=== PATIENT | male | born 1990 | race Caucasian/White ===

== ENCOUNTER 2023-12-17 09:14 | Outpatient (AMB) | payer BC, SELFPAY ==
--- NOTE | 2023-12-17 09:26 | MHC.PC.OV ---
Vital Signs 12/17/23 09:29 Height 5 ft 10 in Weight 324 lb BMI 46.5 BP 132/68 Blood Pressure Location Rt brachial Position Sitting Pulse 85 Pulse Source Pulse Oximeter Pulse Oximetry (%) 97 Oxygen Delivery Method Room Air Intake Visit Reasons: Annual PE Intake Note: Pt is here today for her PE Allergies No Known Allergies Allergy (Verified 12/17/23 09:54) Medication List - Last Reconciled 12/17/23 by Renetta Jean MD No Known Home Meds Tobacco use date assessed: 12/17/23 Dental Screening Dental Screen Date: 12/17/23 Did you have a dental visit in the last 12 months?: Yes Did you have a dental problem in the last 6 months where you did not have access to dental care?: No Was dental information given to patient?: Patient has dentist HPI Annual PE HPI Details 32-year-old male with morbid obesity, has history of mixed anxiety and depression, here today for a physical exam. He was supposed to see a psychotherapist for his anxiety on last visit, but was unable to due to the COVID pandemic. Does not want to start any medications at present time, he has been trying to lose weight through diet and exercise, initially was successful but after he started his new job at the [employer], has not been able to find time to exercise. [facility] Medical History Mixed anxiety depressive disorder History of recurrent ear infection Morbid obesity Surgical History H/O wisdom tooth extraction No pertinent past surgical history Family History Maternal Aunt Throat cancer Other No significant family history Social History Housing: Apartment Alcohol intake: never Patient Tobacco Use Status: Never used Tobacco e-Cigarette/Vaping Use: Never Used service: No Current occupational status: employed Cognitive needs: No Hearing needs: No Vision needs: Yes Questionnaire PHQ-9 Over the last 2 weeks, how often have you been bothered by any of the following problems? 1. Little interest or pleasure in doing things: not at all 2. Feeling down, depressed, or hopeless: several days 3. Trouble falling or staying asleep, or sleeping too much: several days 4. Feeling tired or having little energy: several days 5. Poor appetite or overeating: not at all 6. Feeling bad about yourself - or that you are a failure or have let yourself or your family down: nearly every day 7. Trouble concentrating on things, such as reading the newspaper or watching television: not at all 8. Moving or speaking so slowly that other people could have noticed. Or the opposite - being so fidgety or restless that you have been moving around a lot more than usual: not at all 9. Thoughts that you would be better off or of hurting yourself in some way: not at all Total score: 6 Depression Screening Interpretation: Positive (Referred to Melany Bowie for assistance in getting in to be seen for therapy, does not want to start medication at present) Depression Screening Follow-up: Existing condition and Community Mental Health Worker F/U Depression Screening Done: Yes 98161 - PHQ-9 Billing: Yes Source: Developed by Drs. Amadou Cameron, Debby Anderson, Shan Hood and colleagues, with an educational marielos from [employer]. Thrive Questionnaire Date Thrive assessed: 12/17/23 I am a: Patient What is your living situation today?: I have a steady place to live Within the past 12 months, did the food you bought not last and you didn't have the money to get more?: Never true Within the past 12 months, did you worry whether your food would run out before you got money to buy more?: Never true Do you have trouble paying for medicines?: No Do you have trouble getting transportation to medical appointments?: No Do you have trouble paying your heating and electricity bill?: No Do you have trouble taking care of your child, family member or friend?: No Do you have trouble with day-to-day activities such as bathing, preparing meals, shopping, managing finances, etc.?: No Are you currently unemployed and looking for a job?: No Are you interested in more education?: No THRIVE Score: 0 AUDIT C Alcohol Use Questionnaire (AUDIT-C) 1. How often do you have a drink containing alcohol?: Never Total Score: 0 URBAN-7 AMB Questionnaire URBAN-7 Date URBAN - 7 assessed: 12/17/23 Feeling nervous, anxious, or on edge: 1 = Several days Not being able to stop or control worryin = Several days Worrying too much about different things: 1 = Several days Trouble relaxin = Several days Being so restless that it is hard to sit still: 0 = Not at all Becoming easily annoyed or irritable: 1 = Several days Feeling afraid as if something awful might happen: 2 = More than half the days Total URBAN-7 score (0-4 normal; 5-9 mild; 10-14 moderate; 15-21 severe): 7 Source: Developed by Drs. Amadou Cameron, Debby Anderson, Shan Hood and colleagues, with an educational marielos from [employer]. URBAN-7 Assessment Billing URBAN-7 Assessment Tool: URBAN-7 Assessment 04449 Review of Systems Const Denies body aches, Denies fatigue, Denies headache(s) and Denies weakness Eyes Details: [facility] Reports blurry vision ENT Denies dizziness, Denies headache(s), Denies nasal congestion and Denies nasal discharge Card Denies chest pain, Denies lightheadedness, Denies palpitations and Denies dyspnea Resp Denies chest congestion, Denies cough, Denies dyspnea and Denies wheezing GI Denies abdominal pain, Denies change in bowel habits and Denies heartburn Denies dysuria, Denies urinary frequency and Denies urinary urgency Musc Denies back pain, Reports arthralgias (Occasional in the knees), Denies joint swelling and Denies stiffness Skin/Breast Denies lesions and Denies rash Neuro Denies dizziness, Denies headache(s) and Denies weakness Psych Reports as per HPI Endo Denies fatigue, Denies polydipsia, Denies polyuria and Denies palpitations Theodore/Lymph Denies easy bruising Aller/Immun Denies seasonal rhinorrhea and Denies wheezing Physical exam (Primary Care) Vital Signs: Last Vital Signs Pulse 85 12/17/23 09:29 BP 132/68 12/17/23 09:29 Pulse Ox 97 12/17/23 09:29 Oxygen Delivery Method Room Air 12/17/23 09:29 BMI result Body Mass Index 46.5 BMI Assessment/Plan discussion: High BMI High, discussed plan: lifestyle, weight reduction, dietary and physical activity Tobacco/Smoking Status: Tobacco use Status Tobacco use date assessed 12/17/23 12/17/23 09:34 Patient Tobacco Use Status Never used Tobacco 12/17/23 09:34 e-Cigarette/Vaping Use Never Used 12/17/23 09:34 PHQ-9: PHQ-9 Score PHQ-9: Total score 6 12/17/23 10:16 Depression Screening Interpretation: Positive (Referred to Melany Bowie for assistance in getting in to be seen for therapy, does not want to start medication at present) Depression Screening Follow-up: Existing condition and Community Mental Health Worker F/U Thrive Assessment: Date of Thrive Assessment Date Thrive assessed 12/17/23 12/17/23 09:34 Const Other: Alert oriented x3, no acute distress noted ambulatory with normal gait Nutritional Appearance: obese morbidly obese Orientation/consciousness: patient oriented x3 HENMT Head: Yes atraumatic Ears: TM's normal bilaterally and EAC's normal General nose exam: Normal external nose present and No nasal discharge present Face and sinus: Yes face symmetric Mouth: Normal oral and palatal mucosa present and moist mucous membranes Eyes General: appearance normal, both eyes and all related structures Neck Neck: Yes full ROM, Yes no lymphadenopathy and Yes supple Thyroid: Thyroid normal Resp Auscultation: clear to auscultation bilaterally Cardio Other: S1-S2 present regular and rhythm GI Other: Normal bowel sounds, soft, nontender with no mass palpated Male General Exam: Yes other (Declined exam states that he has no testicular mass/pain or penile d/c) Back/Spine/Pelvis Back: No back tenderness Skin General skin exam: no rashes or lesions noted Neuro General: patient oriented x3, gait normal, moves all extremities, Normal light touch and pain sensation, no focal motor deficits and CN's II-XI intact bilaterally Extrem General: Yes full ROM, Yes no joint enlargement, Yes no clubbing, cyanosis or edema, Yes no calf tenderness and Yes normal gait Psych Appearance: grossly normal and well kempt Mental Status: mental status grossly normal Speech and movement: Normal speech and movement present Affect: normal affect Attitude: cooperative Thought process: Normal thought process present Assessment and Plan Assessment & Plan (1) Annual visit for general adult medical examination with abnormal findings: Code(s): Z00.01 - Encounter for general adult medical examination with abnormal findings Plan: Will check appropriate labs. Recommended dental visit every 6 months and regular eye exams, at least every 2 years. Take adequate calcium in diet and vitamin-D 3 at 2000 IU per cap once a day, in addition to weight-bearing exercises to help maintain good muscle tone and weight control. Instructed to do self testicular exam check for any mass. Reminded to get his yearly flu shot, has had COVID vaccines in the past but does not want to get the booster declined getting Tdap today (2) Mixed anxiety depressive disorder: Code(s): F41.8 - Other specified anxiety disorders Plan: Patient states that he for the most part he is able to control his anxiety attacks cut would like to still see a therapist. Referred to Melany for assistance in getting in to sees a therapist, declined starting medication at present time, does not feel that he needs to, (3) Morbid obesity: Code(s): E66.01 - Morbid (severe) obesity due to excess calories Plan: Discussed need to increase activity and weight reduction. Recommended focusing on improving your health instead of dieting. : Eat Mediterranean diet, limit foods high in fat, sugar, and calories, eat slowly, pay attention to portion sizes, plan your meals ahead of time, start regular physical activity 150 minutes of moderate intensity exercise or 90 minutes/week of vigorous exercise and increase water intake. Declined referral to weight loss clinic Orders: Orders Basic Metabolic Panel Fasting 12/17/23 E66.01 - Morbid (severe) obesity due to excess calories, F41.8 - Other specified anxiety disorders, Z00.01 - Encounter for general adult medical examination with abnormal findings, Z13.1 - Encounter for screening for diabetes mellitus, Z13.220 - Encounter for screening for lipoid disorders Aspartate Amino Transferase 12/17/23 E66.01 - Morbid (severe) obesity due to excess calories, F41.8 - Other specified anxiety disorders, Z00.01 - Encounter for general adult medical examination with abnormal findings, Z13.1 - Encounter for screening for diabetes mellitus, Z13.220 - Encounter for screening for lipoid disorders Complete Blood Count Auto Diff 12/17/23 E66.01 - Morbid (severe) obesity due to excess calories, F41.8 - Other specified anxiety disorders, Z00.01 - Encounter for general adult medical examination with abnormal findings, Z13.1 - Encounter for screening for diabetes mellitus, Z13.220 - Encounter for screening for lipoid disorders Vitamin D 25-OH Total 12/17/23 E66.01 - Morbid (severe) obesity due to excess calories, F41.8 - Other specified anxiety disorders, Z00.01 - Encounter for general adult medical examination with abnormal findings, Z13.1 - Encounter for screening for diabetes mellitus, Z13.220 - Encounter for screening for lipoid disorders Alanine Aminotransferase 12/17/23 E66.01 - Morbid (severe) obesity due to excess calories, F41.8 - Other specified anxiety disorders, Z00.01 - Encounter for general adult medical examination with abnormal findings, Z13.1 - Encounter for screening for diabetes mellitus, Z13.220 - Encounter for screening for lipoid disorders Lipid Panel 12/17/23 E66.01 - Morbid (severe) obesity due to excess calories, F41.8 - Other specified anxiety disorders, Z00.01 - Encounter for general adult medical examination with abnormal findings, Z13.1 - Encounter for screening for diabetes mellitus, Z13.220 - Encounter for screening for lipoid disorders TSH reflex Free T4 12/17/23 E66.01 - Morbid (severe) obesity due to excess calories, F41.8 - Other specified anxiety disorders, Z00.01 - Encounter for general adult medical examination with abnormal findings, Z13.1 - Encounter for screening for diabetes mellitus, Z13.220 - Encounter for screening for lipoid disorders Coding Level of Care Code Est Pt Prev Care [id number]([id number]) Diagnoses Annual visit for general adult medical examination with abnormal findings Z00.01 Mixed anxiety depressive disorder F41.8 Morbid obesity E66. Additional Codes URBAN-7 Assessment Billing - URBAN-7 Assessment Tool: URBAN-7 Assessment [id number] ([id number])
[2023-12-17 09:29] VITALS: BP 132/68; PULSE 85; O2SAT 97; BMI 46.5
== END 2023-12-17 10:25 | disposition home or self-care (01) ==
PROVIDERS: PCP Internal Medicine; Visit Provider Internal Medicine
DX: Z00.00 Encounter for general adult medical examination without abnormal findings (principal); E66.01 Morbid (severe) obesity due to excess calories; Z68.42 Body mass index [BMI] 45.0-49.9, adult; F41.8 Other specified anxiety disorders
CPT/HCPCS: 99395

== ENCOUNTER 2024-12-21 09:16 | Outpatient (REF) | payer BC, SELFPAY ==
[2024-12-21 10:16] LABS: MANUAL DIFF FLAG NO
[2024-12-21 10:29] LABS: Basophils Absolute Auto 0.1 X10*3/uL (0.0-0.2); Basophils Percent Auto 0.6 % (0-2); Eosinophils Percent Auto 0.4 % (0-4); Hematocrit 46.9 % (42.0-52.0); Hemoglobin 15.7 g/dl (14.0-18.0); Imm Gran Abs Auto 0.02 X10*3/uL (0.00-0.03); Imm Gran Pct Auto 0.3 % (0.0-0.4); Lymphocytes Absolute Auto 2.5 X10*3/uL (1.2-4.9); Lymphocytes Percent Auto 32.2 % (20-40); Mean Corpuscular HGB Conc 33.5 g/dl (31.0-36.0); Mean Corpuscular Hemoglobin 27.7 pg (27.0-33.0); Mean Corpuscular Volume 82.9 fL (80.0-98.0); Mean Platelet Volume 10.7 fL (9.4-12.4); Monocytes Absolute Auto 0.5 X10*3/uL (0.1-1.2); Monocytes Percent Auto 6.9 % (2-11); Neutrophils Absolute Auto 4.7 x10*3/uL (2.0-8.3); Neutrophils Percent Auto 59.6 % (45-73); Platelet Count 303 X10*3/uL (160-400); Red Blood Count 5.66 X10*6/uL (4.60-5.80); Red Cell Distribution Width 13.6 % (11.0-16.0); White Blood Count 7.8 X10*3/uL (4.8-10.8)
[2024-12-21 11:52] LABS: Alanine Aminotransferase 32 U/L (0-40); Anion Gap 14 (12-20); Aspartate Amino Transferase 34 U/L (5-37); Blood Urea Nitrogen 12 mg/dL (9-16); Calcium 9.8 mg/dL (8.4-10.2); Carbon Dioxide 24 mmol/L (22-29); Chloride 105 mmol/L (96-108); Cholesterol 167 mg/dL (<200); Estimated Glomerular Filt Rate > 60; Glucose Fasting 85 mg/dL (60-99); HDL Cholesterol 38 mg/dL (>40); LDL Cholesterol Calculated 112 mg/dL (<100); Potassium 4.2 mmol/L (3.3-5.1); Sodium 139 mmol/L (135-145); Triglycerides 85 mg/dL (<150)
== END 2024-12-21 09:17 | disposition home or self-care (01) ==
LOC: HO.HMGCLDS 09:16
PROVIDERS: PCP Internal Medicine; Visit Provider Internal Medicine
DX: E66.01 Morbid (severe) obesity due to excess calories (principal); F41.8 Other specified anxiety disorders; Z13.220 Encounter for screening for lipoid disorders; Z13.1 Encounter for screening for diabetes mellitus
CPT/HCPCS: 36415; 80048; 80061; 84450; 84460; 85025

== ENCOUNTER 2024-12-26 08:36 | Outpatient (AMB) | payer BC, SELFPAY ==
--- NOTE | 2024-12-26 08:38 | A.OFFPC_ITS ---
Vital Signs 12/26/24 08:45 Height 5 ft 10 in Weight 316 lb BMI 45.3 BP 120/74 Blood Pressure Location Rt brachial Position Sitting Respiration 16 Pulse 96 Pulse Source Pulse Oximeter Temp 97.9 F Temp Source Oral Pulse Oximetry (%) 98 Oxygen Delivery Method Room Air Intake Visit Reasons: PE Intake Note: Pt is here today for his PE Allergies No Known Allergies Allergy (Verified 12/26/24 08:56) Medication List - Last Reconciled 12/26/24 by Renetta Jean MD No Known Home Meds Tobacco use date assessed: 12/26/24 Dental Screening Dental Screen Date: 12/26/24 Did you have a dental visit in the last 12 months?: Yes Did you have a dental problem in the last 6 months where you did not have access to dental care?: No Was dental information given to patient?: Patient has dentist HPI PE HPI Details 33-year-old male with history of morbid obesity, mixed anxiety disorder, presents today for his physical exam. He is currently not taking any medications for his anxiety depression, , sees therapist regularly who has been advising him with regards to behavioral techniques on how to control his anxiety but patient feels like he needs to take something right now as he has been having more frequent attacks of anxiety lately. Has never been placed on medications in the past Latest fasting labs done showed electrolytes, renal function fasting glucose, lipids are all within normal limits except for low good cholesterol levels. CBC also came back within normal limits. [facility] Medical History (Updated 12/26/24 @ 09:18 by Renetta Jean MD) Low HDL (under 40) Mixed anxiety depressive disorder History of recurrent ear infection Morbid obesity Surgical History H/O wisdom tooth extraction No pertinent past surgical history Family History Maternal Aunt Throat cancer Other No significant family history Social History Housing: Apartment Alcohol intake: never Patient Tobacco Use Status: Never used Tobacco e-Cigarette/Vaping Use: Never Used service: No Current occupational status: employed Cognitive needs: No Hearing needs: No Vision needs: Yes Questionnaire PHQ-9 Over the last 2 weeks, how often have you been bothered by any of the following problems? 1. Little interest or pleasure in doing things: not at all 2. Feeling down, depressed, or hopeless: several days 3. Trouble falling or staying asleep, or sleeping too much: several days 4. Feeling tired or having little energy: several days 5. Poor appetite or overeating: not at all 6. Feeling bad about yourself - or that you are a failure or have let yourself or your family down: nearly every day 7. Trouble concentrating on things, such as reading the newspaper or watching television: not at all 8. Moving or speaking so slowly that other people could have noticed. Or the opposite - being so fidgety or restless that you have been moving around a lot more than usual: not at all 9. Thoughts that you would be better off or of hurting yourself in some way: not at all Total score: 6 Depression Screening Interpretation: Positive (Currently sees therapist at [facility], started on bupropion XL 150 mg per tablet taken once a day in a.m.) Depression Screening Follow-up: Existing condition, In treatment, New Medication prescribed, Community Mental Health Worker F/U and Follow-up Visit Requested (Telehealth visit in 4 weeks after starting new medication) Depression Screening Done: Yes 05077 - PHQ-9 Billing: Yes Source: Developed by Drs. Amadou Cameron, Debby Anderson, Shan Hood and colleagues, with an educational marielos from [employer]. Thrive Questionnaire Date Thrive assessed: 12/26/24 I am a: Patient What is your living situation today?: I have a steady place to live Within the past 12 months, did the food you bought not last and you didn't have the money to get more?: Never true Within the past 12 months, did you worry whether your food would run out before you got money to buy more?: Never true Do you have trouble paying for medicines?: No Do you have trouble getting transportation to medical appointments?: No Do you have trouble paying your heating and electricity bill?: No Do you have trouble taking care of your child, family member or friend?: No Do you have trouble with day-to-day activities such as bathing, preparing meals, shopping, managing finances, etc.?: No Are you currently unemployed and looking for a job?: No Are you interested in more education?: No Please select the resources that you would like help with: None Currently or been in a relationship where the following occur: No concerns reported THRIVE Score: 0 AUDIT C Alcohol Use Questionnaire (AUDIT-C) 1. How often do you have a drink containing alcohol?: Never Total Score: 0 URBAN-7 AMB Questionnaire URBAN-7 Date URBAN - 7 assessed: 12/26/24 Feeling nervous, anxious, or on edge: 2 = More than half the days Not being able to stop or control worryin = More than half the days Worrying too much about different things: 2 = More than half the days Trouble relaxin = More than half the days Being so restless that it is hard to sit still: 2 = More than half the days Becoming easily annoyed or irritable: 2 = More than half the days Feeling afraid as if something awful might happen: 2 = More than half the days Total URBAN-7 score (0-4 normal; 5-9 mild; 10-14 moderate; 15-21 severe): 14 Source: Developed by Drs. Amadou Cameron, Debby Anderson, Shan Hood and colleagues, with an educational marielos from [employer]. URBAN-7 Assessment Billing URBAN-7 Assessment Tool: URBAN-7 Assessment 20835 (Started on bupropion XL 150 mg daily, continue with regular counseling, follow-up telehealth in 4 weeks) Review of Systems Const Denies body aches, Denies fatigue, Denies headache(s), Denies weakness and Reports weight loss Eyes Details: [facility] Reports blurry vision ENT Denies dizziness, Denies headache(s), Denies nasal congestion and Denies nasal discharge Card Denies chest pain, Denies lightheadedness, Denies palpitations and Denies dyspnea Resp Denies chest congestion, Denies cough, Denies dyspnea and Denies wheezing GI Denies abdominal pain, Denies change in bowel habits and Denies heartburn Denies dysuria, Denies urinary frequency and Denies urinary urgency Musc Denies back pain, Reports arthralgias (Occasional in the knees), Denies joint swelling and Denies stiffness Skin/Breast Denies lesions and Denies rash Neuro Denies dizziness, Denies headache(s) and Denies weakness Psych Reports as per HPI Endo Denies fatigue, Denies polydipsia, Denies polyuria and Denies palpitations Theodore/Lymph Denies easy bruising Aller/Immun Denies seasonal rhinorrhea and Denies wheezing Physical exam (Primary Care) Vital Signs: Last Vital Signs Temp 97.9 F 12/26/24 08:45 Pulse 96 12/26/24 08:45 Resp 16 12/26/24 08:45 BP 120/74 12/26/24 08:45 Pulse Ox 98 12/26/24 08:45 Oxygen Delivery Method Room Air 12/26/24 08:45 BMI result Body Mass Index 45.3 Tobacco/Smoking Status: Tobacco use Status Tobacco use date assessed 12/26/24 12/26/24 08:44 Patient Tobacco Use Status Never used Tobacco 12/26/24 08:40 e-Cigarette/Vaping Use Never Used 12/26/24 08:40 PHQ-9: PHQ-9 Score PHQ-9: Total score 6 12/26/24 09:26 Depression Screening Interpretation: Positive (Currently sees therapist at [facility], started on bupropion XL 150 mg per tablet taken once a day in a.m.) Depression Screening Follow-up: Existing condition, In treatment, New Medication prescribed, Community Mental Health Worker F/U and Follow-up Visit Requested (Telehealth visit in 4 weeks after starting new medication) Thrive Assessment: Date of Thrive Assessment Date Thrive assessed 12/26/24 12/26/24 08:44 Currently or been in a relationship where the following occur: No concerns reported Const Other: Alert oriented x3, no acute distress noted ambulatory with normal gait General: comfortable, no acute distress and alert Nutritional Appearance: obese morbidly obese Orientation/consciousness: patient oriented x3 Limitations: no limitations HENMT Head: Yes atraumatic Ears: TM's normal bilaterally and EAC's normal General nose exam: Normal external nose present and No nasal discharge present Face and sinus: Yes face symmetric Mouth: Normal oral and palatal mucosa present and moist mucous membranes Eyes General: appearance normal, both eyes and all related structures Neck Neck: Yes full ROM, Yes no lymphadenopathy and Yes supple Thyroid: Thyroid normal Chest Chest palpation & inspection: normal inspection of the chest Breast/axilla inspection: normal inspection of the breasts Resp Effort & Inspection: able to speak in complete sentences Auscultation: clear to auscultation bilaterally Cardio Other: S1-S2 present regular and rhythm GI Other: Normal bowel sounds, soft, nontender with no mass palpated Inspection: Yes obesity Male General Exam: Yes other (Declined exam states that he has no testicular mass/pain or penile d/c) Back/Spine/Pelvis Back: No back tenderness Skin General skin exam: no rashes or lesions noted Neuro General: patient oriented x3, gait normal, moves all extremities, Normal light touch and pain sensation, no focal motor deficits and CN's II-XI intact bilaterally Extrem General: Yes full ROM, Yes no joint enlargement, Yes no clubbing, cyanosis or edema, Yes no calf tenderness and Yes normal gait Psych Appearance: grossly normal and well kempt Mental Status: mental status grossly normal Speech and movement: Normal speech and movement present Affect: normal affect Attitude: cooperative Thought process: Normal thought process present Results Reviewed Results Reviewed: RUN: 12/26/24 0857 PAGE 1 [facility] [address] [place] [id number] [place] Underwriter: Sancho Morillo M.D. Specimen Inquiry Name: Perry Camacho Age/Sex: 33/M : 1990 Unit#: [id number] Attend Dr: Renetta Jean MD Re12/21/24 Status: DEP [facility] Disch: SPEC : [id number] ASHLEY: 12/21/24 STATUS: COMP REQ : [id number] RECD: 12/21/24-[address]: Renetta Jean MD COMP: 12/21/24 ENTERED: 12/21/[address] [facility] [address]: ORDERED: CBC Auto Diff Test Result Flag Reference WBC 7.8 4.8-10.8 X10*3/uL RBC 5.66 4.60-5.80 X10*6/uL HGB 15.7 14.0-18.0 g/dl HCT 46.9 42.0-52.0 % MCV 82.9 80.0-98.0 fL MCH 27.7 27.0-33.0 pg MCHC 33.5 31.0-36.0 g/dl RDW 13.6 11.0-16.0 % PLT 303 160-400 X10*3/uL MPV 10.7 9.4-12.4 fL Neut Pct Auto 59.6 45-73 % ImGran Pct Auto 0.3 0.0-0.4 % Lymp Pct Auto 32.2 20-40 % Ocean Pct Auto 6.9 2-11 % Eos Pct Auto 0.4 0-4 % Baso Pct Auto 0.6 0-2 % NRBC Pct Auto 0.0 0.0-0.2 /100WBC ANC Neut Abs # 4.7 2.0-8.3 x10*3/uL ImGran Abs Auto 0.02 0.00-0.03 X10*3/uL Lymph Abs Auto 2.5 1.2-4.9 X10*3/uL Ocean Abs Auto 0.5 0.1-1.2 X10*3/uL Eos Abs Auto 0.0 0.0-0.4 X10*3/uL Baso Abs Auto 0.1 0.0-0.2 X10*3/uL NRBC Abs Auto 0.000 0.0-0.012 X10*3/uL pranay: Perry Camacho Age/Sex: 33/M : 1990 Unit#: [id number] Attend Dr: Renetta Jean MD Re12/21/24 Status: DEP REF Location: [facility] Disch: SPEC : [id number] ASHLEY: 12/21/24 STATUS: COMP REQ : [id number] RECD: 12/21/24-[address]: Renetta Jean MD COMP: 12/21/241152 ENTERED: 12/21/24-[address]: ORDERED: Met Prof Fast, AST, ALT, Lipid Panel Test Result Flag Reference Sodium 139 135-145 mmol/L Potassium 4.2 3.3-5.1 mmol/L CL 105 96-108 mmol/L CO2 24 22-29 mmol/L Gap 14 12-20 BUN 12 9-16 mg/dL Creat 0.83 0.5-1.4 mg/dL eGFR > 60 Chronic Kidney Disease: Estimated GFR < 60 mL/min/1.73m2 Severe Kidney Disease: Estimated GFR < 15 mL/min/1.73m2 FBS 85 60-99 mg/dL CA 9.8 8.4-10.2 mg/dL AST (GOT) 34 5-37 U/L ALT (GPT) 32 0-40 U/L Triglyceride 85 <150 mg/dL Desirable Triglyceride: less than 150 mg/dL Borderline High Triglyceride 150-199 mg/dL High Triglyceride: 200-499 mg/dL Very High Triglyceride: greater than or equal to 5OO mg/dL Cholesterol 167 <200 mg/dL Desirable Cholesterol: less than 200 mg/dL Borderline High Cholesterol: 200-239 mg/dL High Cholesterol: greater than 239 mg/dL LDL Calculated 112 H <100 mg/dL Desirable LDL: less than 100 mg/dL Near Optimal/Above Optimal LDL: 110-129 mg/dL Borderline High LDL: 130-159 mg/dL High LDL: 160-189 mg/dL Very High LDL: greater than or equal to 190 mg/dL HDL 38 L >40 mg/dL Desirable HDL: greater than 40 mg/dL Note: This HDL assay may give artificially low results in patients with liver disease. Coding Level of Care Code Est Pt Prev Care 18-39y(86209) Diagnoses Annual visit for general adult medical examination with abnormal findings Z. Mixed anxiety depressive disorder F41.8 Low HDL (under 40) E78.6 Additional Codes URBAN-7 Assessment Billing - URBAN-7 Assessment Tool: URBAN-7 Assessment 19920 ([id number]) PHQ-9 - 30526 - PHQ-9 Billing: Yes ([id number]) Assessment & Plan Assessment & Plan (1) Annual visit for general adult medical examination with abnormal findings: Code(s): Z00.01 - Encounter for general adult medical examination with abnormal findings Plan: Recent fasting lab results discussed with patient which came back significant for low HDL cholesterol. Advised to do at least 30 minutes of moderate intensity exercise daily and adherence to healthy eating habits.. Continue with dental visit every 6 months and regular eye exams, at least every 2 years, currently up-to-date. Advised to try eating a Mediterranean diet, cutting back on sodas, processed foods and refined sugars reminded to get yearly flu shot, does not want to get a COVID booster, reminded as well to get the Tdap. Patient does not want to get any vaccine at present time as he is going straight to work (2) Mixed anxiety depressive disorder: Code(s): F41.8 - Other specified anxiety disorders Category: Medical Plan: Currently sees therapist, will start on bupropion XL 150 mg per tablet to take once a day in a.m., discussed possible side effects which may increase risk for seizures, insomnia, do not mixed with any alcoholic drinks, will see him back for follow-up via telehealth in 4 weeks (3) Low HDL (under 40): Code(s): E78.6 - Lipoprotein deficiency Category: Medical Plan: Reinforced importance of following a healthy diet, try doing Mediterranean diet and encouraged to do moderate intensity exercise for 15 minutes at least 3 to 4 times a week to help raise good cholesterol levels Medications: New bupropion HCl XL 150 mg PO QAM 30 tabs 1RF F41.8 - Other specified anxiety disorders
[2024-12-26 08:45] VITALS: BP 120/74; PULSE 96; RESP 16; TEMP 36.6; O2SAT 98; BMI 45.3
== END 2024-12-26 09:23 | disposition home or self-care (01) ==
LOC: HO.HMCC 08:37
PROVIDERS: PCP Internal Medicine; Visit Provider Internal Medicine
DX: Z00.01 Encounter for general adult medical examination with abnormal findings (principal); F41.8 Other specified anxiety disorders; E78.6 Lipoprotein deficiency

== ENCOUNTER → 2024-12-26 08:36 | Outpatient (BNVA) | payer BC, SELFPAY | PROVIDERS: PCP Internal Medicine; Visit Provider Internal Medicine | DX: Z00.01 Encounter for general adult medical examination with abnormal findings (principal); F41.8 Other specified anxiety disorders; E78.6 Lipoprotein deficiency | CPT/HCPCS: 96127 ==

== ENCOUNTER 2025-01-11 09:47 | Outpatient (AMB) | payer BC, SELFPAY ==
--- NOTE | 2025-01-11 10:02 | AM.OFFVISNUR ---
Intake Visit Reasons: TDAP shot Allergies No Known Allergies Allergy (Verified 12/26/24 08:56) Immunizations Boostrix Tdap 2.5 Lf unit-8 mcg-5 Lf/0.5 mL intramuscular syringe Performing Provider: Renetta Jean MD Performing Location: [facility] Administered by: Isai Salcedo CMA on 01/11/25 10:04 Dose Route Admin Location Dispensed Lot Number Expiration Date [facility] [employer] Operator 0.5 mL IM Right Deltoid 0.5 mL [id number] 04/25/27 [id number] [employer] VIS Given Date VIS Provided VIS Publication Date 01/11/25 Single Vaccine 21 Eligibility Eligibility Date Funding Source Not [facility] Eligible 01/11/25 Private Assessment & Plan Assessment & Plan Orders: Orders TDaP Immunization Today Z23 - Encounter for immunization Medications: New Boostrix Tdap (diphth,pertus(acell),tetanus) 0.5 mL IM ONCE 0.5 mL 0RF NS Z23 - Encounter for immunization Coding
== END 2025-01-11 10:31 | disposition home or self-care (01) ==
LOC: HO.HMCC 09:48
PROVIDERS: PCP Internal Medicine; Visit Provider Internal Medicine
DX: Z23 Encounter for immunization (principal)

== ENCOUNTER → 2025-01-11 09:47 | Outpatient (BNVA) | payer BC, SELFPAY | PROVIDERS: PCP Internal Medicine; Visit Provider Internal Medicine | DX: Z23 Encounter for immunization (principal) | CPT/HCPCS: 90471; 90715 ==

== ENCOUNTER 2025-01-19 11:20 | Outpatient (AMB) | payer BC, SELFPAY ==
--- NOTE | 2025-01-19 11:18 | A.OFFPC_ITS ---
Intake Visit Reasons: 1 months f/up-telehealth Intake Note: Pt is having a teleheatlh visit for his 1mo. f/u Allergies No Known Allergies Allergy (Verified 01/19/25 11:21) Medication List - Last Reconciled 01/19/25 by Renetta Jean MD bupropion HCl XL 150 mg PO QAM Tobacco use date assessed: 01/19/25 Dental Screening Dental Screen Date: 01/19/25 Did you have a dental visit in the last 12 months?: Yes Did you have a dental problem in the last 6 months where you did not have access to dental care?: No Was dental information given to patient?: Patient has dentist HPI 1 months f/up-telehealth HPI Details - The patient is a 34-year-old male pres enting for follow up on his depression, seeking an adjustment in bupropion dosage. - Despite being on a daily 150 mg dose, he reports minimal changes and desires an increase to 300 mg for potentially better efficacy. - The administration of the medication o ccurs in the morning with no significant side effects noted except for rare mild dreams at onset. [facility] Medical History Low HDL (under 40) Mixed anxiety depressive disorder History of recurrent ear infection Morbid obesity Surgical History H/O wisdom tooth extraction No pertinent past surgical history Family History Maternal Aunt Throat cancer Other No significant family history Social History Housing: Apartment Alcohol intake: never Patient Tobacco Use Status: Never used Tobacco e-Cigarette/Vaping Use: Never Used service: No Current occupational status: employed Cognitive needs: No Hearing needs: No Vision needs: Yes Questionnaire PHQ-9 Over the last 2 weeks, how often have you been bothered by any of the following problems? 1. Little interest or pleasure in doing things: not at all 2. Feeling down, depressed, or hopeless: several days 3. Trouble falling or staying asleep, or sleeping too much: several days 4. Feeling tired or having little energy: several days 5. Poor appetite or overeating: not at all 6. Feeling bad about yourself - or that you are a failure or have let yourself or your family down: nearly every day 7. Trouble concentrating on things, such as reading the newspaper or watching television: not at all 8. Moving or speaking so slowly that other people could have noticed. Or the opposite - being so fidgety or restless that you have been moving around a lot more than usual: not at all 9. Thoughts that you would be better off or of hurting yourself in some way: not at all Total score: 6 Depression Screening Interpretation: Positive (Currently sees therapist at [facility] [place], increased dose of bupropion XL to 300 mg per tablet taken once a day in a.m.) Depression Screening Follow-up: Existing condition, In treatment and Community Mental Health Worker F/U Depression Screening Done: Yes 22642 - PHQ-9 Billing: Yes Source: Developed by Drs. Amadou Cameron, Debby Anderson, Shan Hood and colleagues, with an educational marielos from [employer]. Thrive Questionnaire Date Thrive assessed: 12/26/24 I am a: Patient What is your living situation today?: I have a steady place to live Within the past 12 months, did the food you bought not last and you didn't have the money to get more?: Never true Within the past 12 months, did you worry whether your food would run out before you got money to buy more?: Never true Do you have trouble paying for medicines?: No Do you have trouble getting transportation to medical appointments?: No Do you have trouble paying your heating and electricity bill?: No Do you have trouble taking care of your child, family member or friend?: No Do you have trouble with day-to-day activities such as bathing, preparing meals, shopping, managing finances, etc.?: No Are you currently unemployed and looking for a job?: No Are you interested in more education?: No Please select the resources that you would like help with: None Currently or been in a relationship where the following occur: No concerns reported THRIVE Score: 0 URBAN-7 AMB Questionnaire URBAN-7 Date URBAN - 7 assessed: 12/26/24 Source: Developed by Drs. Amadou Cameron, Debby Anderson, Shan Hood and colleagues, with an educational marielos from [employer]. Review of Systems Const Denies body aches, Denies fatigue, Denies headache(s), Denies weakness and Reports weight loss Eyes Details: [facility] Reports blurry vision ENT Denies dizziness, Denies headache(s), Denies nasal congestion and Denies nasal discharge Card Denies chest pain, Denies lightheadedness, Denies palpitations and Denies dyspnea Resp Denies chest congestion, Denies cough, Denies dyspnea and Denies wheezing GI Denies abdominal pain, Denies change in bowel habits and Denies heartburn Denies dysuria, Denies urinary frequency and Denies urinary urgency Musc Denies back pain, Reports arthralgias (Occasional in the knees), Denies joint swelling and Denies stiffness Skin/Breast Denies lesions and Denies rash Neuro Denies dizziness, Denies headache(s) and Denies weakness Psych Reports as per HPI Endo Denies fatigue, Denies polydipsia, Denies polyuria and Denies palpitations Theodore/Lymph Denies easy bruising Aller/Immun Denies seasonal rhinorrhea and Denies wheezing Physical exam (Primary Care) Tobacco/Smoking Status: Tobacco use Status Tobacco use date assessed 01/19/25 01/19/25 11:19 Patient Tobacco Use Status Never used Tobacco 01/19/25 11:19 e-Cigarette/Vaping Use Never Used 01/19/25 11:19 Depression Screening Interpretation: Positive (Currently sees therapist at [facility], increased dose of bupropion XL to 300 mg per tablet taken once a day in a.m.) Depression Screening Follow-up: Existing condition, In treatment and Community Mental Health Worker F/U Thrive Assessment: Date of Thrive Assessment Date Thrive assessed 12/26/24 01/19/25 11:19 Currently or been in a relationship where the following occur: No concerns reported Telehealth Telehealth [facility]health [facility] Location of provider rendering services: practice address Location of patient: address on file Patient Identification confirmed using: Name, : Yes Telehealth method: video Patient verbally consented to treatment: Yes Patient verbally consented to billing insurance company: Yes Patient informed of any privacy concerns related to visit: Yes Minutes spent on Phone/Video with Pt.: 20 Coding Level of Care Code Tele Est Pt Level 4 (07802) Diagnoses Mixed anxiety depressive disorder F41.8 Additional Codes PHQ-9 - 10722 - PHQ-9 Billing: Yes ([id number]) Assessment & Plan Assessment & Plan (1) Mixed anxiety depressive disorder: Code(s): F41.8 - Other specified anxiety disorders Category: Medical Plan: Bupropion HCL XL dose increased to 300 mg per tablet taken once a day in a.m.. Continue with regular counseling patient to send a message in the portal if medicine is helpingby February 2025, otherwise to schedule another appointment for follow-up visit Medications: New bupropion HCl XL 300 mg PO QAM 30 tabs 2RF F41.8 - Other specified anxiety disorders Discontinued bupropion HCl XL Discontinued Reason: Doctor's Order 150 mg PO QAM 30 tabs 1RF F41.8 - Other specified anxiety disorders
== END 2025-01-19 11:36 | disposition home or self-care (01) ==
LOC: HO.HMCC 11:20
PROVIDERS: PCP Internal Medicine; Visit Provider Internal Medicine
DX: F41.8 Other specified anxiety disorders (principal)

== ENCOUNTER → 2025-01-19 11:20 | Outpatient (BNVA) | payer BC, SELFPAY | PROVIDERS: PCP Internal Medicine; Visit Provider Internal Medicine | DX: F41.8 Other specified anxiety disorders (principal); Z79.899 Other long term (current) drug therapy | CPT/HCPCS: 96127 ==

== ENCOUNTER 2025-05-03 15:27 | Outpatient (AMB) | payer BC, SELFPAY ==
--- NOTE | 2025-05-03 15:35 | A.OFFPSYCH_ITS ---
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 Has been engaged in therapy for a year, taking bupropion, which was not doing a great deal to help manage the symptom, however, when the dose was increased it did take the edge off. Reports creeping dread and increase in sx of anxiety. 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 He has worked with the [employer] a long while, however, the increase in responsiblities has increased anxiety, along with taking calls from angry customers. Reports first sx of anxiety in middle school and high school- feeling pressure with grades, social interactions, friends- felt a tightness above his stomach and an impending feeling that something was going to go wrong. Reports some sleep disturbance at times as well. Reports home life is very good, supportive partner, family is well with the exception of pt's mother having a conflict with one of his brothers. Past Psychiatric History: IP: Denies OP: Affirms Trials: Wellbutrin July- Denies, Perceptual Alterations-Denies SI/SA- Denies Subjective Subjective Subjective Medication Compliance: Yes Side effects from medications: No Review of Systems Medical Review of Systems: unchanged Review of Systems Review of Systems denies Mental Status Exam Mental Status Exam Patient Appearance: Appropriate Patient Orientation: Person, Place, Time and Situation Level of Consciousness: Alert Patient Behavior: Talkative and Anxious Mood Description: Anxious Affect Description: Anxious Patient Cognition Impaired: No Ability to Follow Directions: Good Speech Pattern: Spontaneous Speech Memory Description: Intact Hallucinations: None Delusions: Not Present Thought Process: Intact Thought Content: positive for Intact and positive for Goal Oriented Depressive Symptoms: Increased Anxiety Judgement: Good Assessment and Plan Assessment & Plan (1) Mixed anxiety depressive disorder: Status: Acute Code(s): F41.8 - Other specified anxiety disorders Plan Continue Wellbutrin. Add Sertraline 25 mg daily for 14 days and increase to 50 mg on day 15 as tolerated. Medications: New sertraline Take one tablet daily for 14 days, then two tablets daily 50 mg (2 x 25 mg) PO DAILY 60 tabs 0RF Counseling and coordination of Care Medication management counseling: Effectiveness, Side effects, Dosing range, Duration, Drug interaction, Adherence and Other Details: I spent [] minutes reviewing the record, seeing the patient and documenting in the medical record. Counseling provided to the patient/caregiver as outlined below. Addressed patient/caregiver concerns regarding current medication regime including effective adherence. Addressed patient/caregiver concerns regarding diagnosis and prognosis including accuracy of diagnosis, prognosis over time, impact of diagnosis. Addressed patient/caregiver concerns regarding impact of recent stressors. [facility] Medical History Low HDL (under 40) Mixed anxiety depressive disorder History of recurrent ear infection Morbid obesity Surgical History H/O wisdom tooth extraction No pertinent past surgical history Family History Maternal Aunt Throat cancer Other No significant family history Social History Housing: Apartment Alcohol intake: never Patient Tobacco Use Status: Never used Tobacco e-Cigarette/Vaping Use: Never Used service: No Current occupational status: employed Cognitive needs: No Hearing needs: No Vision needs: Yes Social History: Born in [place], raised in [facility]. Two brothers Did well in school until Alexander year with AP classes- father monitored his progress/grades and he reports struggling. 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 Currently works for a local [employer], has a supportive girlfriend, no children Substance History: denies Trauma History: denies Coding Level of Care Code Psych Diag Eval w/Med (17608) Diagnoses Mixed anxiety depressive disorder F41.8
== END 2025-05-03 16:12 | disposition home or self-care (01) ==
LOC: HO.HOP 15:27
PROVIDERS: PCP Internal Medicine; Visit Provider Clinical Nurse Specialist Psychiatric/Mental Health, Adult
DX: F41.8 Other specified anxiety disorders (principal)
CPT/HCPCS: 90792

== ENCOUNTER → 2025-05-03 15:27 | Outpatient (BNVA) | payer BC, SELFPAY | PROVIDERS: PCP Internal Medicine; Visit Provider Clinical Nurse Specialist Psychiatric/Mental Health, Adult | DX: F41.8 Other specified anxiety disorders (principal) | CPT/HCPCS: 90792 ==

== ENCOUNTER 2025-05-31 16:54 | Outpatient (AMB) | payer BC, SELFPAY ==
--- NOTE | 2025-05-31 17:22 | A.OFFPSYCH_ITS ---
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 HPI Narrative: Perry reports feeling improved. Sertraline was tolerated and he was able to increase to 50 mg from 25 mg on day 15. He reports experiencing nausea for one day, some drowsiness last week, however sleep pattern has been inconsistent. Also 2 tension headaches which were relieved with ice. Discussed checking blood pressure when he has a headache which he reports he will do. He attributes this to mattress position when sleeping Overall a significant decrease in anxiety, not completely gone, but no sx of having a pit in my stomach, no panic attacks, able to attend the [place] [employer]-was stung by a wasp with no anxiety. Sees relief at work- able to manage stress better than before, less overwhelmed, although there have been many calls, problems- I can cope better . Sleep is always variable, that is on me and my schedule, not medicine. I can sleep if I go to bed . No sx of benito which we discussed. Past Psychiatric History: IP: Denies OP: Affirms Trials: Wellbutrin Benito- Denies, Perceptual Alterations-Denies SI/SA- Denies Subjective Subjective Subjective Medication Compliance: Yes Side effects from medications: No Review of Systems Medical Review of Systems: unchanged Review of Systems Review of Systems Denies Mental Status Exam Mental Status Exam Patient Orientation: Person, Place, Time and Situation Level of Consciousness: Alert Patient Behavior: Appropriate and Talkative Mood Description: Appropriate Affect Description: Appropriate Patient Cognition Impaired: No Ability to Follow Directions: Good Speech Pattern: Spontaneous Speech Memory Description: Intact Hallucinations: None Delusions: Not Present Thought Process: Intact and Goal Oriented Thought Content: positive for Intact and positive for Goal Oriented Judgement: Good Telehealth Telehealth Telehealth Platform: Telephone Location of provider rendering services: practice address Location of patient: address on file Patient Identification confirmed using: Name, : Yes Telehealth method: voice only Patient verbally consented to treatment: Yes Patient verbally consented to billing insurance company: Yes Patient informed of any privacy concerns related to visit: Yes Minutes spent on Phone/Video with Pt.: 20 Assessment and Plan Assessment & Plan (1) Mixed anxiety depressive disorder: Status: Acute Code(s): F41.8 - Other specified anxiety disorders Plan Pt will continue Bupropion XL 300 mg daily and Sertraline 50 mg daily. Will refill Sertraline. Pt does not need Bupropion at this time Pt will return to primary care team for onoing medication mgt. Medications: New sertraline 50 mg PO Q24H 90 tabs 0RF Discontinued sertraline Take one tablet daily for 14 days, then two tablets daily Discontinued Reason: Doctor's Order 50 mg (2 x 25 mg) PO DAILY 60 tabs 0RF Counseling and coordination of Care Medication management counseling: Effectiveness, Side effects, Dosing range, Duration, Drug interaction and Adherence Diagnosis and Prognosis Counseling: Impact of diagnosis on life functions Details: I spent [] minutes reviewing the record, seeing the patient and documenting in the medical record. Counseling provided to the patient/caregiver as outlined below. Addressed patient/caregiver concerns regarding current medication regime including effective adherence. Addressed patient/caregiver concerns regarding diagnosis and prognosis including accuracy of diagnosis, prognosis over time, impact of diagnosis. Addressed patient/caregiver concerns regarding impact of recent stressors. [facility] Medical History Low HDL (under 40) Mixed anxiety depressive disorder History of recurrent ear infection Morbid obesity Surgical History H/O wisdom tooth extraction No pertinent past surgical history Family History Maternal Aunt Throat cancer Other No significant family history Social History Housing: Apartment Alcohol intake: never Patient Tobacco Use Status: Never used Tobacco e-Cigarette/Vaping Use: Never Used service: No Current occupational status: employed Cognitive needs: No Hearing needs: No Vision needs: Yes Social History: Born in [place], raised in [facility]. Two brothers Did well in school until Alexander year with AP classes- father monitored his progress/grades and he reports struggling. 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 Currently works for a local [employer], has a supportive girlfriend, no children Substance History: denies Trauma History: denies Coding Level of Care Code Est Pt Level 3 (08656) Diagnoses Mixed anxiety depressive disorder F41.8
== END 2025-05-31 16:55 | disposition home or self-care (01) ==
LOC: HO.HOP 16:54
PROVIDERS: PCP Internal Medicine; Visit Provider Clinical Nurse Specialist Psychiatric/Mental Health, Adult
DX: F41.8 Other specified anxiety disorders (principal)
CPT/HCPCS: 99213

== ENCOUNTER 2025-08-06 13:06 | Outpatient (AMB) | payer BC, SELFPAY ==
[2025-08-06 13:20] VITALS: BP 124/80; PULSE 94; RESP 16; TEMP 36.7; O2SAT 98; BMI 44.3
--- NOTE | 2025-08-06 13:20 | MHC.PC.OV ---
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 Patient states that he has been feeling better on combination of bupropion HCL 300 mg daily in the morning and sertraline 50 mg once a day. Would like to stay on this treatment regimen which has been helping. He also is seeing a counselor at [facility] Medical History Low HDL (under 40) Mixed anxiety depressive disorder History of recurrent ear infection Morbid obesity Surgical History H/O wisdom tooth extraction No pertinent past surgical history Family History Maternal Aunt Throat cancer Other No significant family history Social History Housing: Apartment Alcohol intake: never Patient Tobacco Use Status: Never used Tobacco e-Cigarette/Vaping Use: Never Used service: No Current occupational status: employed Cognitive needs: No Hearing needs: No Vision needs: Yes Questionnaire PHQ-9 Over the last 2 weeks, how often have you been bothered by any of the following problems? 1. Little interest or pleasure in doing things: not at all 2. Feeling down, depressed, or hopeless: several days 3. Trouble falling or staying asleep, or sleeping too much: several days 4. Feeling tired or having little energy: several days 5. Poor appetite or overeating: not at all 6. Feeling bad about yourself - or that you are a failure or have let yourself or your family down: more than half the days 7. Trouble concentrating on things, such as reading the newspaper or watching television: not at all 8. Moving or speaking so slowly that other people could have noticed. Or the opposite - being so fidgety or restless that you have been moving around a lot more than usual: not at all 9. Thoughts that you would be better off or of hurting yourself in some way: not at all Total score: 5 Depression Screening Interpretation: Positive ( better controlled on sertraline and bupropion, sees counselor at [facility]) Depression Screening Follow-up: Existing condition, In treatment and Community Mental Health Worker F/U Depression Screening Done: Yes 21559 - PHQ-9 Billing: Yes Source: Developed by Drs. Amadou Cameron, Debby Anderson, Shan Hood and colleagues, with an educational marielos from [employer]. Thrive Questionnaire Date Thrive assessed: 12/26/24 I am a: Patient What is your living situation today?: I have a steady place to live Within the past 12 months, did the food you bought not last and you didn't have the money to get more?: Never true Within the past 12 months, did you worry whether your food would run out before you got money to buy more?: Never true Do you have trouble paying for medicines?: No Do you have trouble getting transportation to medical appointments?: No Do you have trouble paying your heating and electricity bill?: No Do you have trouble taking care of your child, family member or friend?: No Do you have trouble with day-to-day activities such as bathing, preparing meals, shopping, managing finances, etc.?: No Are you currently unemployed and looking for a job?: No Are you interested in more education?: No Please select the resources that you would like help with: None Currently or been in a relationship where the following occur: No concerns reported THRIVE Score: 0 URBAN-7 AMB Questionnaire URBAN-7 Date URBAN - 7 assessed: 08/06/25 Feeling nervous, anxious, or on edge: 2 = More than half the days Not being able to stop or control worryin = Several days Worrying too much about different things: 1 = Several days Trouble relaxin = Several days Being so restless that it is hard to sit still: 1 = Several days Becoming easily annoyed or irritable: 0 = Not at all Feeling afraid as if something awful might happen: 0 = Not at all Total URBAN-7 score (0-4 normal; 5-9 mild; 10-14 moderate; 15-21 severe): 6 Source: Developed by Drs. Amadou Cameron, Debby Anderson, Shan Hood and colleagues, with an educational marielos from [employer]. URBAN-7 Assessment Billing URBAN-7 Assessment Tool: URBAN-7 Assessment 42888 Review of Systems Const All systems reviewed & are unremarkable except as noted in HPI and below Physical exam (Primary Care) Vital Signs: Last Vital Signs Temp 98.1 F 08/06/25 13:20 Pulse 94 08/06/25 13:20 Resp 16 08/06/25 13:20 BP 124/80 08/06/25 13:20 Pulse Ox 98 08/06/25 13:20 Oxygen Delivery Method Room Air 08/06/25 13:20 BMI result Body Mass Index 44.3 Tobacco/Smoking Status: Tobacco use Status Tobacco use date assessed 08/06/25 08/06/25 13:25 Patient Tobacco Use Status Never used Tobacco 08/06/25 13:25 e-Cigarette/Vaping Use Never Used 08/06/25 13:25 PHQ-9: PHQ-9 Score PHQ-9: Total score 5 08/06/25 13:56 Depression Screening Interpretation: Positive ( better controlled on sertraline and bupropion, sees counselor at [facility]) Depression Screening Follow-up: Existing condition, In treatment and Community Mental Health Worker F/U Thrive Assessment: Date of Thrive Assessment Date Thrive assessed 12/26/24 08/06/25 13:25 Currently or been in a relationship where the following occur: No concerns reported Const Other: Alert oriented x3, no acute distress noted ambulatory with normal gait [facility] General nose exam: Normal external nose present Face and sinus: Yes face symmetric Mouth: moist mucous membranes Eyes General: appearance normal, both eyes and all related structures Neck Neck: Yes full ROM, Yes no lymphadenopathy and Yes supple Thyroid: Thyroid normal Resp Effort & Inspection: able to speak in complete sentences Auscultation: clear to auscultation bilaterally Cardio Other: S1-S2 present regular and rhythm GI Other: Normal bowel sounds, soft, nontender with no mass palpated Neuro General: gait normal, moves all extremities, Normal light touch and pain sensation, no focal motor deficits and CN's II-XI intact bilaterally Extrem General: Yes full ROM, Yes no joint enlargement, Yes no clubbing, cyanosis or edema, Yes no calf tenderness and Yes normal gait Psych Appearance: grossly normal and well kempt Mental Status: mental status grossly normal Speech and movement: Normal speech and movement present Affect: normal affect Coding Level of Care Code Est Pt Level 4 (66273) Diagnoses Mixed anxiety depressive disorder F41.8 Additional Codes URBAN-7 Assessment Billing - URBAN-7 Assessment Tool: URBAN-7 Assessment 47094 ([id number]) PHQ-9 - 83644 - PHQ-9 Billing: Yes ([id number]) Assessment & Plan Assessment & Plan (1) Mixed anxiety depressive disorder: Code(s): F41.8 - Other specified anxiety disorders Category: Medical Plan: Will continue on bupropion HCL XL 300 mg daily in the morning and sertraline 50 mg daily. Continue with regular therapy at [facility]. See us back for follow-up and schedule physical exam next year Medications: Refilled bupropion HCl XL 300 mg PO QAM 90 tabs 3RF F41.8 - Other specified anxiety disorders sertraline 50 mg PO Q24H 90 tabs 3RF
== END 2025-08-06 13:56 | disposition home or self-care (01) ==
LOC: HO.HMCC 13:07
PROVIDERS: PCP Internal Medicine; Visit Provider Internal Medicine
DX: F41.8 Other specified anxiety disorders (principal)

== ENCOUNTER → 2025-08-06 13:06 | Outpatient (BNVA) | payer BC, SELFPAY | PROVIDERS: PCP Internal Medicine; Visit Provider Internal Medicine | DX: F41.8 Other specified anxiety disorders (principal) | CPT/HCPCS: 96127 ==